=== PATIENT | male | born 1970 | race Caucasian/White ===

== ENCOUNTER 2016-11-09 15:54 | Emergency (ER) | payer SELFPAY ==
--- NOTE | 2016-11-09 16:55 | ER PHYSICIAN DOCUMENTATION ---
Physician Documentation [facility] Name:Jn Mckeon Jr Age:46 yrs Sex:Male :1970 Arrival Date:11/09/2016 Time:15:54 Bed1 Private MD: Tutu Gonzalez Disposition: 11/09/16 16:45 Discharged to Home/Self Care. Impression: Abscess. - Condition is Good. - Discharge Instructions: Abscess - ABSCESS, I and D. - Prescriptions for Bactrim DS 160- 800 mg Oral Tablet - take 1 tablet by ORAL route every 12 hours for 10 days; 20 tablet. - Medical Reconciliation form form. - Follow up: Private Physician; When: As needed; Reason: If symptoms return. - Problem is new. - Symptoms have improved. HPI: 11/09 16:38 This 46 yrs old Male presents to ER via Private Vehicle with complaints of sc Boil. 16:38 The patient presents with an abscess of the right axilla. Description: erythematous, sc raised, swollen. Onset: The symptom(s)/episode began/occurred 2 week(s) ago. Possible cause(s): unknown. Associated signs and symptoms: Pertinent positives: erythema, swelling. The patient has experienced similar episodes in the past, a few times. Historical: - Allergies: PENICILLINS; cats; - Home Meds: 1. Metformin Oral 2. Lantus Sub-Q - PMHx: DIABETES - IDDM; Factor V; Head Injury (July 13, 2016); - PSHx: R hip surgery; - Tetanus: < 10 years. - Ebola Screening: : Patient negative for fever greater than or equal to 101.5 degrees Fahrenheit, and additional compatible Ebola Virus Disease symptoms. Patient denies exposure to infectious person. Patient denies travel to an Ebola-affected area in the 21 days before illness onset. No symptoms or risks identified at this time. . - Immunization history: Flu Vaccine >1 year. - Social history: Smoking status: Patient states was never smoker of tobacco. Patient uses alcohol only on a social basis. Patient/guardian denies using street drugs, IV drugs, marijuana. ROS: 16:40 Constitutional: Negative for fever, chills, and weight loss. sc Eyes: Negative for injury, pain, redness, and discharge. Cardiovascular: Negative for chest pain, palpitations, and edema. Respiratory: Negative for shortness of breath, cough, wheezing, and pleuritic chest pain. Back: Negative for injury and pain. MS/Extremity: Negative for injury and deformity. 16:40 Psych: Negative for depression, anxiety, suicide ideation, homicidal ideation, and sc hallucinations. 16:40 Skin: Positive for abscess, erythema, swelling. Exam: Constitutional: This is a well developed, well nourished patient who is awake, alert, and in no acute distress. Head/Face: Normocephalic, atraumatic. Eyes: Pupils equal round and reactive to light, extra-ocular motions intact. Lids and lashes normal. Conjunctiva and sclera are non-icteric and not injected. Cornea within normal limits. Periorbital areas with no swelling, redness, or edema. Neck: Trachea midline, no thyromegaly or masses palpated, and no cervical lymphadenopathy. Supple, full range of motion without nuchal rigidity, or vertebral point tenderness. No meningismus. Cardiovascular: Regular rate and rhythm with a normal S1 and S2. No gallops, murmurs, or rubs. Normal PMI, no JVD. No pulse deficits. Respiratory: Lungs have equal breath sounds bilaterally, clear to auscultation and percussion. No rales, rhonchi or wheezes noted. No increased work of breathing, no retractions or nasal flaring. 16:40 Back: No spinal tenderness. No costovertebral tenderness. Full range of motion. sc 16:40 Skin: abscess. Vital Signs: 16:07 BP 121 / 81; Pulse 101; Resp 18; Temp 98.2; Pulse Ox 92% on R/A; sc1 Procedures: 16:42 I & D: Incision and drainage was performed for an abscess of the right axilla. Prepped sc with Betadine, Anesthetized with ml's 2% Lidocaine with epinephrine. 2 ml's 2% Lidocaine with epinephrine. Incised with #15 blade. Drained small amount purulent fluid. the patient tolerated the procedure well. MDM: 16:13 Patient medically screened. sc 16:42 Differential diagnosis: abscess. Data reviewed: vital signs, nurses notes, lab test sc result(s), EKG, radiologic studies, and as a result, I will discharge patient. Counseling: I had a detailed discussion with the patient and/or guardian regarding: the historical points, exam findings, and any diagnostic results supporting the discharge/admit diagnosis, lab results, radiology results, the need for outpatient follow up, to return to the emergency department if symptoms worsen or persist or if there are any questions or concerns that arise at home. Dispensed Medications: No medications were administered Signatures: Ann Bullock RN RN sc1 Tutu Holcomb MD MD ar
--- NOTE | 2016-11-09 16:55 | ER NURSING DOCUMENTATION ---
Nurse's Notes [facility] Name:Jn Mckeon Jr Age:46 yrs Sex:Male :1970 Arrival Date:11/09/2016 Time:15:54 Bed1 Private MD: Diagnosis:Abscess Presentation: 11/09 16:04 Presenting complaint: Patient states: has a couple of small abscesses under right arm sc1 pit. Transition of care: Home. Notified ED Physician of Dr. Holcomb notified. 16:04 Acuity: CHRISTIN 3 ri1 16:04 Method Of Arrival: Private Vehicle ri1 Triage Assessment: 16:07 General: Appears in no apparent distress, comfortable, well developed, well nourished, sc1 well groomed, Behavior is cooperative, pleasant. Pain: Denies pain. Historical: - Allergies: PENICILLINS; cats; - Home Meds: 1. Metformin Oral 2. Lantus Sub-Q - PMHx: DIABETES - IDDM; Factor V; Head Injury (July 13, 2016); - PSHx: R hip surgery; - Tetanus: < 10 years. - Ebola Screening: : Patient negative for fever greater than or equal to 101.5 degrees Fahrenheit, and additional compatible Ebola Virus Disease symptoms. Patient denies exposure to infectious person. Patient denies travel to an Ebola-affected area in the 21 days before illness onset. No symptoms or risks identified at this time. . - Immunization history: Flu Vaccine >1 year. - Social history: Smoking status: Patient states was never smoker of tobacco. Patient uses alcohol only on a social basis. Patient/guardian denies using street drugs, IV drugs, marijuana. Screenin:08 Infectious Disease Risk None. Abuse screen: Denies threats or abuse. Nutritional ri1 screening: No deficits noted. Vital Signs: 16:07 BP 121 / 81; Pulse 101; Resp 18; Temp 98.2; Pulse Ox 92% on R/A; ri1 ED Course: 15:55 Patient arrived in ED. leidy 16:04 Ann Bullock, ELISABETH is Primary Nurse. ri1 16:05 Triage completed. ri1 16:07 Notified ED Physician of patient's arrival and chief complaint. Dr. Holcomb notified. ri1 Allergy Band Placed Arm band placed on Bed in low position Call Light in Reach Gowned HOB Elevated. 16:13 Tutu Holcomb MD is Attending Physician. ri 16:29 Assist Provider Assist provider with I & D: of an abscess on right axilla Set up I&D sc1 tramauricio. Performed by Tutu Holcomb MD Patient tolerated well. Administered Medications: No medications were administered Outcome: 16:45 Discharge ordered by . ri 16:53 Patient left the ED. ri1 Signatures: Ann Bullock RN RN ri1 Tutu Holcomb MD MD sc Rylee Watson, Reg Reg leidy
== END 2016-11-09 16:54 | disposition home or self-care (01) ==
LOC: ER 15:54
DX: L02.411 Cutaneous abscess of right axilla (principal); E11.9 Type 2 diabetes mellitus without complications; Z79.899 Other long term (current) drug therapy; Z79.4 Long term (current) use of insulin
CPT/HCPCS: 10060; 99282

== ENCOUNTER 2017-01-02 23:19 | Emergency (ER) | payer SELFPAY ==
--- NOTE | 2017-01-02 23:45 | ER PHYSICIAN DOCUMENTATION ---
Physician Documentation [facility] [place] Name:Jn Mckeon Jr Age:46 yrs Sex:Male :1970 Arrival Date:01/02/2017 Time:23:19 Bed2 Private MD:Physician, No ED Kunal Yi Disposition: 01/02/17 23:39 Discharged to Home/Self Care. Impression: Dental pain. - Condition is Good. - Discharge Instructions: DENTAL PAIN. - Prescriptions for Hydrocodone- Acetaminophen 5-325 mg Oral - take 1 tablet by ORAL route every 6 hours As needed; 10 tablet. - Medical Reconciliation form form. - Follow up: Private, Dentist; When: 2 - 3 days; Reason: Continuance of care. - Problem is new. - Symptoms have improved. HPI: 01/03 00:00 This 46 yrs old Male presents to ER via Walk In with complaints of Toothache, jm Mouth Swelling. 00:00 The patient presents with pain. The problem is located in the lower right first molar jm and lower right second molar. Onset: The symptom(s)/episode began/occurred today. Duration: The symptoms are continuous. Historical: - Allergies: PENICILLINS; cats; - Home Meds: 1. Metformin Oral 2. Lantus Sub-Q - PMHx: DIABETES - IDDM; Factor V; HEAD INJURY (July 13, 2016); - Tetanus: < 10 years. - Ebola Screening: : Patient negative for fever greater than or equal to 101.5 degrees Fahrenheit, and additional compatible Ebola Virus Disease symptoms. Patient denies exposure to infectious person. Patient denies travel to an Ebola-affected area in the 21 days before illness onset. No symptoms or risks identified at this time. . - Immunization history: Flu Vaccine None. - Social history: Smoking status: Patient uses tobacco products, current every day smoker. ROS: 00:00 Constitutional: Negative for fever. 00:00 ENT: Positive for dental pain. 00:00 Skin: Negative for swelling. Exam: 00:00 Constitutional: The patient appears alert, awake. 00:00 ENT: Dental exam: dental caries, fractured teeth are noted, specifically the lower right second bicuspid (#29) and lower right first molar (#30), Voice: is normal. 00:00 Neck: Thyroid: appears normal, Trachea: is midline with no obvious abnormalities. 00:00 Skin: Appearance: Color: pink, swelling, is not appreciated, no rash present. Vital Signs: 01/02 23:26 BP 163 / 90; Pulse 70; Resp 18; Temp 98.4; Pulse Ox 97% on R/A; Weight 80.74 kg (R); bw2 Height 5 ft. 10 in. (177.80 cm); Pain 9/10; 23:26 Body Mass Index 25.54 (80.74 kg, 177.80 cm) bw2 Procedures: 01/03 00:00 Nerve block: (dental) of right inferior alveolar nerve, Medication: Lidocaine 2% with candiec epinephrine, Marcaine 0.5%, Amount: 10 mls were injected, Effect: the patient's symptoms are improved, Set up for procedure. Performed by Kunal Coates MD Patient tolerated well. MDM: 01/02 23:32 Patient medically screened. candcie 01/03 00:00 Differential diagnosis: dental caries. Data reviewed: vital signs, nurses notes, and as jm a result, I will discharge patient. Counseling: I had a detailed discussion with the patient and/or guardian regarding: the historical points, exam findings, and any diagnostic results supporting the discharge/admit diagnosis, the need for outpatient follow up, a dentist. Dispensed Medications: 01/02 23:43 Drug: HYDROcodone-acetaminophen (5mg/325 mg) 1-2 tabs 1 tabs; Route: PO; bw2 23:44 Follow up: Response: Pharmacy closed - take home med pack bw2 Signatures: Kunal Coates MD MD jm Wisely, Beth bw2
--- NOTE | 2017-01-02 23:45 | ER NURSING DOCUMENTATION ---
Nurse's Notes [place] Name:Jn Mckeon Jr Age:46 yrs Sex:Male :1970 Arrival Date:01/02/2017 Time:23:19 Bed2 Private MD:Fina Landeros Diagnosis:Dental pain Presentation: 01/02 23:21 Acuity: CHRISTIN 4 [facility] 23:24 Presenting complaint: Patient states: right lower tooth pain intermittently x months. bw2 states pain has increased tonight. Transition of care: patient was not received from another setting of care. 23:24 Method Of Arrival: Walk In [facility] 23:28 Notified ED Physician of patient's arrival and CC Jaxon Pereira notified. 2 Triage Assessment: 23:25 General: Appears in no apparent distress, Behavior is appropriate for age. Pain: bw2 Complains of pain in right lower tooth pain. EENT: Reports pain in right jaw pain. Historical: - Allergies: PENICILLINS; cats; - Home Meds: 1. Metformin Oral 2. Lantus Sub-Q - PMHx: DIABETES - IDDM; Factor V; HEAD INJURY (July 13, 2016); - Tetanus: < 10 years. - Ebola Screening: : Patient negative for fever greater than or equal to 101.5 degrees Fahrenheit, and additional compatible Ebola Virus Disease symptoms. Patient denies exposure to infectious person. Patient denies travel to an Ebola-affected area in the 21 days before illness onset. No symptoms or risks identified at this time. . - Immunization history: Flu Vaccine None. - Social history: Smoking status: Patient uses tobacco products, current every day smoker. Screenin:27 Infectious Disease Risk None. Abuse screen: Denies threats or abuse. Nutritional 2 screening: No deficits noted. Assessment: 23:27 See Triage Assessment done by same RN. 2 Vital Signs: 23:26 BP 163 / 90; Pulse 70; Resp 18; Temp 98.4; Pulse Ox 97% on R/A; Weight 80.74 kg (R); bw2 Height 5 ft. 10 in. (177.80 cm); Pain 9/10; 23:26 Body Mass Index 25.54 (80.74 kg, 177.80 cm) 2 ED Course: 23:20 Patient arrived in ED. ma1 23:20 Physician, No is Private Physician. ma1 23:21 Wisely, Tori is Primary Nurse. bw2 23:21 Triage completed. bw2 23:28 Valuables Remains with patient. bw2 23:32 Kunal Coates MD is Attending Physician. candice 23:39 Private, Dentist is Referral Physician. candice Administered Medications: 23:43 Drug: HYDROcodone-acetaminophen (5mg/325 mg) 1-2 tabs 1 tabs; Route: PO; bw2 23:44 Follow up: Response: Pharmacy closed - take home med pack bw2 Outcome: 23:39 Discharge ordered by . candice 23:44 Discharged to home ambulatory. bw2 23:44 Condition: good 23:44 Discharge Assessment: Patient awake, alert and oriented x 3. No cognitive and/or functional deficits noted. Patient verbalized understanding of disposition instructions. 23:44 Discharge instructions given to patient, Instructed on discharge instructions, follow up and referral plans. medication usage, Demonstrated understanding of instructions, medications, Prescriptions given X 1. 23:44 Patient left the ED. bw2 Signatures: Kunal Coates MD MD jm Wisely, Beth 2 [facility]
== END 2017-01-02 23:45 | disposition home or self-care (01) ==
LOC: ER 23:19
DX: K08.89 Other specified disorders of teeth and supporting structures (principal); K02.9 Dental caries, unspecified; K03.81 Cracked tooth; E11.9 Type 2 diabetes mellitus without complications; Z79.899 Other long term (current) drug therapy; Z79.4 Long term (current) use of insulin
CPT/HCPCS: 64400; 99283

== ENCOUNTER 2017-01-20 23:57 | Emergency (ER) | payer SELFPAY ==
[2017-01-21] MEDS ORDERED: METOCLOPRAMIDE HCL 10 MG/2 ML VIAL ONE (00:34)
[2017-01-21] MEDS ORDERED: KETOROLAC TROMETHAMINE 30 MG/ML VIAL ONE (00:34)
[2017-01-21] MEDS ORDERED: cefTRIAXone SODIUM 1,000 MG/10 ML VIAL ONE (00:34)
--- NOTE | 2017-01-21 01:50 | ER NURSING DOCUMENTATION ---
Nurse's Notes [facility] Name:Jn Mckeon Jr Age:46 yrs Sex:Male :1970 Arrival Date:01/20/2017 Time:23:57 Bed1 Private MD: Diagnosis:Abscess Presentation: 01/21 00:17 Presenting complaint: Patient states: right axilla cyst for a few months. pain worse lb tonught, unable to sleep. Transition of care: Home. Notified ED Physician of Dr. Covington notified. 00:17 Method Of Arrival: Walk In lb 00:17 Acuity: CHRITSIN 4 lb Triage Assessment: 00:20 General: Appears uncomfortable, Behavior is appropriate for age. Pain: Complains of lb pain in right axilla Pain does not radiate. Pain currently is 4 out of 10 on a pain scale. Neuro: No deficits noted. Cardiovascular: No deficits noted. Respiratory: No deficits noted. GI: No deficits noted. Derm: Abscess located on right axilla. Historical: - Allergies: PENICILLINS; - Home Meds: 1. Lantus Sub-Q 2. Metformin Oral - PMHx: Diabetes - IDDM; - PSHx: Hip surgery; - Tetanus: < 10 years. - Ebola Screening: : Patient denies exposure to infectious person. Patient denies travel to an Ebola-affected area in the 21 days before illness onset. . - Immunization history: Flu Vaccine None. - Social history: Smoking status: Patient uses tobacco products, current every day smoker. Patient/guardian denies using alcohol. Screenin:21 Infectious Disease Risk None. Abuse screen: Denies threats or abuse. Denies injuries lb from another. Nutritional screening: No deficits noted. Assessment: 00:21 See Triage Assessment done by same RN. lb Vital Signs: 00:05 BP 133 / 86 LA Sitting (auto/reg); Pulse 92 RA; Resp 24 S; Temp 98.2(O); Pulse Ox 93% em3 on R/A; Weight 80.74 kg (R); Height 5 ft. 11 in. (180.34 cm) (R); Pain 4/10; 01:30 BP 104 / 73; Pulse 82; Resp 16; Temp 98.1; Pulse Ox 93% ; fc 01:32 Pain 1/10; fc 01:33 Pain 1/10; fc 01:49 BP 104 / 72; Pulse 83; Resp 16; Pulse Ox 93% on R/A; Pain 1/10; lb 00:05 Body Mass Index 24.83 (80.74 kg, 180.34 cm) em3 00:05 Pain is 9/10 while ambulating right arm em3 ED Course: 01/20 23:59 Patient arrived in ED. em3 01/21 00:01 Samson Covington MD is Attending Physician. be 00:07 Valuables Remains with patient Patient has correct armband on for positive em3 identification. Placed in gown. Bed in low position. Call light in reach. Side rails up X 1. 00:08 [facility] is Referral Physician. be 00:16 Latricia Sumner is Primary Nurse. lb 00:18 Triage completed. lb 01:47 Assist Provider Assist provider with I & D: of an abscess on right axilla. Dressings: lb iodoform packing and 4 x 4. 02:34 Primary Nurse role handed off by Latricia Sumner be Administered Medications: 00:10 Drug: Toradol 30 mg; Route: IM; Site: left deltoid; fc 01:32 Follow up: Pain 1/10 Adult fc 00:10 Drug: Dilaudid 1 mg; Route: IM; Site: left deltoid; fc 01:33 Follow up: Pain 1/10 Adult fc 00:10 Drug: Reglan 5 mg; Route: IM; Site: left deltoid; fc 01:47 Follow up: Response: No adverse reaction lb 00:10 Drug: Rocephin 1 grams; Route: IM; Site: left deltoid; fc 01:47 Follow up: Response: No adverse reaction lb Outcome: 00:09 Discharge ordered by . be 01:48 Discharged to home ambulatory. lb 01:48 Condition: good 01:48 Discharge Assessment: Patient awake, alert and oriented x 3. No cognitive and/or functional deficits noted. Patient verbalized understanding of disposition instructions. 01:48 Instructed on discharge instructions, follow up and referral plans. wound care. 01:49 Patient left the ED. lb 02:36 Patient left the ED. be Signatures: Samson Covington MD MD be Zane Darling em3 rosina kuo Latricia Sumner lb
--- NOTE | 2017-01-21 01:50 | ER PHYSICIAN DOCUMENTATION ---
Physician Documentation [facility] Name:Jn Mckeon Jr Age:46 yrs Sex:Male :1970 Arrival Date:01/20/2017 Time:23:57 Bed1 Private MD: Samson Alcala Disposition: 01/21/17 00:09 Discharged to Home/Self Care. Impression: Abscess. - Condition is Good. - Discharge Instructions: ABSCESS, Abx Only, ABX - SEBACEOUS CYST, Infected (Abx Tx). - Prescriptions for Bactrim DS 160- 800 mg Oral - take 1 tablet by ORAL route every 12 hours for 10 days; 14 tablet. Doxycycline Hyclate 100 mg Oral Tablet - take 1 tablet by ORAL route every 12 hours; 20 tablet. Hydrocodone- Acetaminophen 5-325 mg Oral Tablet - take 1 tablet by ORAL route every 6 hours As needed; 20 tablet. - Medical Reconciliation form form. - Follow up: [facility]; When: 2 - 3 days; Reason: Recheck today's complaints. - Problem is an ongoing problem. - Symptoms have improved. HPI: 01/21 00:04 This 46 yrs old Male presents to ER with complaints of Cyst. be 00:04 Patient presents to ED for recheck of: previous incision and drainage of an abscess, be right axialla. Previous treatment: Treatment type: The patient's original treatment included an I&D, oral antibiotics. Progress: The patient reports decreased pain. Historical: - Allergies: PENICILLINS; - Home Meds: 1. Lantus Sub-Q 2. Metformin Oral - PMHx: Diabetes - IDDM; - PSHx: Hip surgery; - Tetanus: < 10 years. - Ebola Screening: : Patient denies exposure to infectious person. Patient denies travel to an Ebola-affected area in the 21 days before illness onset. . - Immunization history: Flu Vaccine None. - Social history: Smoking status: Patient uses tobacco products, current every day smoker. Patient/guardian denies using alcohol. ROS: 00:05 Skin: Positive for abscess, right axialla. be Exam: 00:05 Constitutional: This is a well developed, well nourished patient who is awake, alert, be and in acute distress. 00:05 Chest/axilla: Normal chest wall appearance and motion. Nontender with no deformity. be Right axiallary pointing abscess appreciated. 01:39 Skin: lesion(s), located on the right arm and right axilla, pointing abscess. be Vital Signs: 00:05 BP 133 / 86 LA Sitting (auto/reg); Pulse 92 RA; Resp 24 S; Temp 98.2(O); Pulse Ox 93% em3 on R/A; Weight 80.74 kg (R); Height 5 ft. 11 in. (180.34 cm) (R); Pain 4/10; 01:30 BP 104 / 73; Pulse 82; Resp 16; Temp 98.1; Pulse Ox 93% ; fc 01:32 Pain 1/10; fc 01:33 Pain 1/10; fc 01:49 BP 104 / 72; Pulse 83; Resp 16; Pulse Ox 93% on R/A; Pain 1/10; lb 00:05 Body Mass Index 24.83 (80.74 kg, 180.34 cm) em3 00:05 Pain is 9/10 while ambulating right arm em3 Procedures: 00:06 I & D: Incision and drainage was performed for an abscess of the right axilla. Prepped be with Betadine, Anesthetized with 3 ml's 1% Lidocaine w/ Epi. Incised with #11 blade. Drained moderate amount purulent fluid. Loculations removed. Cultures obtained. Abscess cavity explored. Packed with iodoform gauze, the patient tolerated the procedure well. MDM: 00:02 Patient medically screened. be 00:07 Differential diagnosis: Right axillary abscess. Data reviewed: vital signs, nurses be notes, and as a result, I will discharge patient, administer antibiotics Rocephin. 00:08 Data reviewed: and as a result, I will prescribe pain medication, Dilaudid, Toradol. be 01/21 04:51 Order name: WOUND CULTURE AND GRAM STAIN EDMS Dispensed Medications: 00:10 Drug: Toradol 30 mg; Route: IM; Site: left deltoid; fc 01:32 Follow up: Pain 1 Adult fc 00:10 Drug: Dilaudid 1 mg; Route: IM; Site: left deltoid; fc 01:33 Follow up: Pain 10 Adult fc 00:10 Drug: Reglan 5 mg; Route: IM; Site: left deltoid; fc 01:47 Follow up: Response: No adverse reaction lb 00:10 Drug: Rocephin 1 grams; Route: IM; Site: left deltoid; 01:47 Follow up: Response: No adverse reaction lb Signatures: Samson Covington MD MD be collins, floyd fc Bollock, Lynda lb
== END 2017-01-21 02:37 | disposition home or self-care (01) ==
LOC: ER 23:57
DX: L02.411 Cutaneous abscess of right axilla (principal); E10.9 Type 1 diabetes mellitus without complications; F17.210 Nicotine dependence, cigarettes, uncomplicated
CPT/HCPCS: 10060; 87070; 87077; 87186; 87205; 96372; 99283; J0696; J1170; J1885; J2765